=== PATIENT | male | born 1945 | race Caucasian/White ===

== ENCOUNTER 2016-06-12 16:52 | Inpatient (IN) | payer OTHER ==
[~2016-06-12] VITALS: Ht 175.3 cm; Wt 95.0 kg
[~2016-06-12 16:52] MED LIST: CIPRO500 MG PO; EFFEXOR XR75 MG PO; ERGOCALCIF50000 UNIT PO; FLAGYL500 MG PO; HYDROCHLOROTHIA25 MG PO; LISINOPRIL20 MG PO; LO-DOSE ASPIRIN81 M2 PO; LORATADINE10 M2 PO; OMEPRAZOLE20 MG PO; REMICADE10 MG/ML IV; SFROWASA4 GM/60 ML PR; SIMVASTATIN80 MG PO
[2016-06-12 17:38] LABS: EOSINOPHIL (%) 0.3 % (0-5); HEMATOCRIT 39.2 % (38.0-50.0); IMMATURE GRANULOCYTE (%) 0.2 % (0.0-0.7); IMMATURE GRANULOCYTE COUNT 0.3 K/uL; LYMPHOCYTE COUNT 2.4 K/uL (1.0-2.8); MCH 27.6 PG (29.0-34.0); MCHC 33.2 G/DL (30.0-36.0); MCV 83.2 FL (86-99); MEAN PLAT.VOLUME 9.9 uM^3 (9.0-12.4); MONOCYTE (%) 11.4 % (3-12); MONOCYTE COUNT 1.5 K/uL (0-0.8); NEUTROPHIL (%) 69.4 % (45-76); PLATELET COUNT 263 K/uL (156-360); RBC DIS.WIDTH-CV 14.5 % (11.8-14.6); RED BLOOD COUNT 4.71 M/uL (4.00-5.50)
[2016-06-12 17:49] LABS: CHLORIDE 102 mEq/L (99-109); POTASSIUM 3.8 mEq/L (3.7-5.4); SODIUM 137 mEq/L (136-147)
[2016-06-12 17:51] LABS: GLUCOSE 89 mg/dL (70-99)
[2016-06-12 17:52] LABS: ANION GAP 10 MEQ/L (2-14)
[2016-06-12 17:55] LABS: GFR ESTIMATE (CALCULATED) 54 mL/min/
[2016-06-12 17:56] LABS: UREA NITROGEN (BUN) 15 mg/dL (9-23)
[2016-06-12] MEDS ORDERED: VENLAFAXINE HCL75 M3 PO (23:42)
[2016-06-12] MEDS ORDERED: SIMVASTATIN80 MG PO (23:42)
[2016-06-12] MEDS ORDERED: OMEPRAZOLE20 MG PO (23:42)
[2016-06-12] MEDS ORDERED: HYDROCHLOROTHIA25 MG PO (23:42)
[2016-06-12] MEDS ORDERED: APRISO0.375 GM PO (23:42)
[2016-06-12] MEDS ORDERED: MIRALAX255 GM PO (23:43)
[2016-06-12] MEDS ORDERED: CLARITIN,ALAVAR10 MG PO (23:43)
[2016-06-12] MEDS ORDERED: ASPIR 8181 M1 PO (23:43)
[2016-06-12] MEDS ORDERED: LISINOPRIL20 MG PO (23:43)
[2016-06-13 00:50] VITALS: BP 114/85
[2016-06-13 11:30] VITALS: BP 137/79
[2016-06-13 16:15] VITALS: BP 134/73
[2016-06-13 18:09] VITALS: BP 140/80
[2016-06-13 20:20] VITALS: BP 120/84
[2016-06-14 00:13] VITALS: BP 125/70
[2016-06-14 04:00] VITALS: BP 106/55
[2016-06-14 07:10] VITALS: BP 113/69
[2016-06-14 10:55] VITALS: BP 108/56
== END 2016-06-14 12:23 | disposition home or self-care (01) | DRG 872 ==
LOC: EME 16:52 → EDOF 23:14 → 5WEST 23:14 → 4SOUTH 06-13 18:09
DX: A41.9 Sepsis, unspecified organism (principal); L03.114 Cellulitis of left upper limb; W54.8XXA Other contact with dog, initial encounter; I10 Essential (primary) hypertension; K21.9 Gastro-esophageal reflux disease without esophagitis; F32.9 Major depressive disorder, single episode, unspecified; E78.5 Hyperlipidemia, unspecified; K51.90 Ulcerative colitis, unspecified, without complications; A28.0 Pasteurellosis
CPT/HCPCS: 80048; 83605; 85025; 87040; 87070; 87075; 87076; 87185; 87205; 87502; 87651 90; 99281; 99285; G0378; J0295; J0696; J2270; J7050; J7120